=== PATIENT | male | born 1965 | race Caucasian/White ===

== ENCOUNTER 2017-01-06 00:04 | Emergency (ER) | payer BC, OTHER ==
[2017-01-06 00:10] VITALS: TEMP 97.9; O2SAT 94
--- NOTE | 2017-01-06 00:38 | EDPHY ---
H & P Stated Complaint: stops breathing when he falls to sleep, wakes up anxious Time Seen by Provider: 01/06/17 00:12 HPI/ROS: Chief Complaint: Difficulty sleeping HPI: 51-year-old male states that over the last couple days he has been having difficulty sleeping. Patient states that he falls asleep and then wakes up gasping shortly thereafter. Feels very anxious after this happens. Has had similar symptoms before but they seem were since he has had upper respiratory symptoms for the last couple days. He has a sensation that he is going to stop breathing. Has taken some Benadryl as a sleep aid with a little bit of relief. Does have a history of difficulty sleeping insomnia in the past. Never seen a doctor for this and is not currently taking any other medications. He does state that he believes he does snore frequently. He has never had a sleep study done. Does not feel short of breath while awake. States some days he feels rested after sleeping but other days he does not feel like he has gotten very much rest even after full night's sleep. He does get up frequently awakened in the middle of the night. ROS: 10 point Review of Systems is negative except as noted in the HPI. PMH: Reactive airway disease with upper respiratory infections Social History: No smoking, no alcohol, no recreational drug use Family History: non-contributory Physical Exam: Gen: Awake, Alert, No Distress HEENT: Nose: no rhinorrhea Eyes: PERRLA, EOMI Mouth: Moist mucosa Neck: Supple, no JVD Chest: nontender, lungs clear to auscultation Heart: S1, S2 normal, no murmur Abd: Soft, non-tender, no guarding Back: no CVA tenderness, no midline tenderness Ext: no edema, non-tender Skin: no rash Neuro: CN II-XII intact, Sensation grossly intact, Strength 5/5 in bilateral upper and lower extremities - Personal History Current Tetanus Diphtheria and Acellular Pertussis (TDAP): Unsure - Medical/Surgical History Hx Asthma: No Hx Chronic Respiratory Disease: No Hx Diabetes: No Hx Cardiac Disease: No Hx Renal Disease: No Hx Cirrhosis: No Hx Alcoholism: No Hx HIV/AIDS: No Hx Splenectomy or Spleen Trauma: No Other PMH: med hx-seasonal allergies,kidney stones. surg-pneumothorax,kidney stent - Social History Smoking Status: Never smoked Constitutional: Initial Vital Signs Temperature (C) 36.6 C 01/06/17 00:08 Heart Rate 101 H 01/06/17 00:08 Respiratory Rate 18 01/06/17 00:08 Blood Pressure 140/89 H 01/06/17 00:08 O2 Sat (%) 94 01/06/17 00:08 O2 Delivery Mode Room Air Allergies/Adverse Reactions: penicillin V potassium [From Pen-Vee K] Allergy (Mild, Verified 01/06/17 00:08) Rash Home Medications: Medication Instructions Recorded NK [No Known Home Meds] 01/03/16 Medical Decision Making ED Course/Re-evaluation: 51-year-old male presenting with symptoms very consistent with obstructive sleep apnea. Think he would benefit mostly from a sleep study. Will discharge him with referral for primary care physician. He is concerned able but does sleep tonight is feeling quite anxious about this. Have discussed options for sleep aids. He has taken Benadryl with me a little bit of success. We discussed benzodiazepines for a couple nights versus Ambien. He would prefer like Lauren benzodiazepine at this point. Will discharge him with it to go back up for as a pain. He will call to make appointment with primary care physician tomorrow to arrange for an outpatient sleep study. He does understand that a benzodiazepine is not likely to helped him in the [place] if this is sleep apnea. Departure - Departure Disposition: Home, Routine, Self-Care Clinical Impression: Sleep apnea, Insomnia Condition: Good Instructions: Snoring (ED), Insomnia (ED) Additional Instructions: He may take Ativan, 1 tablet before bed as a sleep aid. Follow up with primary care physician in next 2-3 days for further evaluation and referral for a sleep study. Return emergency depart for increasing shortness of breath, cough, chest pain, or any other concerns. Referrals: NONE *PRIMARY CARE P,. [Primary Care Provider] - As per Instructions Juanita Snyder MD [Medical Doctor] - As per Instructions
[2017-01-06] MEDS ORDERED: LORAZEPAM 1 MG PREPACK#4 BTL TAKEHOME ONE (00:39)
[2017-01-06 00:46] VITALS: BP 135/84; PULSE 80; RESP 16
== END 2017-01-06 00:46 | disposition home or self-care (01) ==
DX: G47.30 Sleep apnea, unspecified (principal); G47.00 Insomnia, unspecified; J45.909 Unspecified asthma, uncomplicated

== ENCOUNTER 2017-01-09 04:09 | Emergency (ER) | payer OTHER ==
[2017-01-09 04:48] VITALS: RESP 16
--- NOTE | 2017-01-09 05:04 | EDPHY ---
H & P Stated Complaint: c/o numbness in L side of face x 3 hrs Time Seen by Provider: 01/09/17 04:31 HPI/ROS: HPI The patient presents with headache associated with left-sided facial numbness. Today at about 4:00 p.m. while hiking he had slow onset of a left-sided frontal headache that began to radiate throughout his head, described as an ache. This persisted throughout the night. Has been unable to sleep. At about 2 or 3:00 a.m. he noticed that the left side of his face felt numb, this is mild but has been present constantly and is what brought him into the emergency room. He has had intermittent mild headaches over the last 3 weeks, though this seems more severe. Does not usually get headaches, though occasionally has a caffeine withdrawal headache. He denies any photophobia, he does have mild nausea. He was seen in the emergency room 3 days ago with insomnia which was thought to be due to obstructive sleep apnea. He is followed up with primary care and has plans to have a sleep study. He has not been sleeping much over the last 1 week. Tonight he has been up all night. He is not sure why this is happening. REVIEW OF SYSTEMS Constitutional: No fever, no chills. Eyes: No discharge. ENT: No sore throat. Cardiovascular: No chest pain, no palpitations. Respiratory: No cough, no shortness of breath. Gastrointestinal: No abdominal pain, no vomiting. Genitourinary: No hematuria. Musculoskeletal: No back pain. Skin: No rashes. Neurological: No headache. PMHx: Reactive airway disease, likely obstructive sleep apnea PHYSICAL General Appearance: Alert, no distress Eyes: Pupils equal and round no pallor or injection ENT, Mouth: Mucous membranes moist Respiratory: There are no retractions, lungs are clear to auscultation Cardiovascular: Regular rate and rhythm Gastrointestinal: Abdomen is soft and non-tender, no masses, bowel sounds normal Neurological: A&O, cranial nerves 2-12 intact, except for diminished sensation on left V1 and V2 distribution, 5/5 strength in upper and lower extremities which is symmetric, sensation intact to light touch moves all extremities Skin: Warm and dry, no rashes Musculoskeletal: Neck is supple non tender Extremities: symmetrical, full range of motion Psychiatric: Patient is oriented X 3, there is no agitation Source: Patient - Medical/Surgical History Hx Asthma: No Hx Chronic Respiratory Disease: No Hx Diabetes: No Hx Cardiac Disease: No Hx Renal Disease: No Hx Cirrhosis: No Hx Alcoholism: No Hx HIV/AIDS: No Hx Splenectomy or Spleen Trauma: No Other PMH: med, kidney stones, asthma. surg-pneumothorax,kidney stent - Social History Smoking Status: Never smoked Constitutional: Initial Vital Signs Temperature (C) 36.4 C 01/09/17 04:13 Heart Rate 118 H 01/09/17 04:13 Respiratory Rate 18 01/09/17 04:13 Blood Pressure 159/97 H 01/09/17 04:13 O2 Sat (%) 97 01/09/17 04:13 O2 Delivery Mode Room Air Allergies/Adverse Reactions: penicillin V potassium [From Pen-Vee K] Allergy (Mild, Verified 01/09/17 04:17) Rash metronidazole Allergy (Verified 01/09/17 04:18) Home Medications: Medication Instructions Recorded Flovent 220 MCG Hfa MDI (*) 01/09/17 Medical Decision Making Differential Diagnosis: This is a 51-year-old man who is brought in from home complaining of headache and left-sided facial numbness for the last several hours. Differential diagnosis includes atypical migraine, brain mass, less likely TIA given headache component. On exam, he has no neurologic deficits except for very mild subjective numbness to his forehead and cheek on the left. We have decided to proceed with CT scan of his brain. This was performed and showed no acute findings. His symptoms actually improved while in the emergency room. I feel he may have an atypical migraine as the cause of his symptoms. He is not sleeping well and this could have precipitated his symptoms. I would not expect TIA to cause a headache. He will be discharged from the ER, I have offered him medication for pain, however he declines. He has follow-up a sleep specialist later this week. I have invited him to return to the emergency room if his symptoms persist. Departure - Departure Disposition: Home, Routine, Self-Care Clinical Impression: Headache, Insomnia Condition: Good Instructions: Acute Headache (ED) Additional Instructions: Please return to the emergency room if your symptoms become worse in any way. Otherwise you should follow up with the sleep specialists as planned. You can take ibuprofen or Tylenol for your headache. Referrals: Juanita Snyder MD [Medical Doctor] - As per Instructions
[2017-01-09 06:29] VITALS: BP 123/94; PULSE 87; TEMP 98.1; O2SAT 95
== END 2017-01-09 06:34 | disposition home or self-care (01) ==
DX: R51 Headache (principal); G47.00 Insomnia, unspecified; J45.909 Unspecified asthma, uncomplicated; Z95.5 Presence of coronary angioplasty implant and graft